=== PATIENT | female | born 1990 | race Caucasian/White ===

== ENCOUNTER 2017-02-03 22:14 | Emergency (ER) | payer SELFPAY ==
[~2017-02-03] VITALS: Ht 167.6 cm; Wt 72.6 kg
[2017-02-03 22:32] VITALS: BP 140/75
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
--- NOTE | 2017-02-03 22:51 | NUR ---
DR FLORES AT BEDSIDE FOR EVAL.
[2017-02-03] MEDS ORDERED: IBUPROFEN 400 MG TABLET ONE (23:02)
[2017-02-03] MEDS ORDERED: IBUPROFEN 400 MG TABLET PO ONE (23:30)
== END 2017-02-04 00:21 | disposition home or self-care (01) ==
LOC: ER 22:16
DX: S52.514A Nondisplaced fracture of right radial styloid process, initial encounter for closed fracture (principal); S52.614A Nondisplaced fracture of right ulna styloid process, initial encounter for closed fracture; V49.49XA Driver injured in collision with other motor vehicles in traffic accident, initial encounter; Y93.89 Activity, other specified; Y92.89 Other specified places as the place of occurrence of the external cause; Y99.9 Unspecified external cause status
CPT/HCPCS: 29125; 73110; 73130; 84703; 99284; A4606; Z7610